=== PATIENT | male | born 1985 | race Caucasian/White ===

== ENCOUNTER → 2020-02-23 | Outpatient (CLI) | payer OTHER | LOC: KOH-I 16:00 | DX: M54.2 Cervicalgia (principal); M54.5 Low back pain; M54.6 Pain in thoracic spine; R05 Cough; M48.02 Spinal stenosis, cervical region; M25.78 Osteophyte, vertebrae; M47.816 Spondylosis without myelopathy or radiculopathy, lumbar region; M48.061 Spinal stenosis, lumbar region without neurogenic claudication; M48.07 Spinal stenosis, lumbosacral region; M40.56 Lordosis, unspecified, lumbar region; M47.814 Spondylosis without myelopathy or radiculopathy, thoracic region | CPT/HCPCS: 71046; 72050; 72070; 72100 ==